=== PATIENT | male | born 1995 | race American Indian/Alaskan Native ===

== ENCOUNTER 2022-05-04 13:33 | Emergency (ER) | payer SELFPAY ==
[2022-05-04 14:12] VITALS: BP 139/93
== END 2022-05-04 16:00 | disposition left against medical advice (07) ==
LOC: ED 13:33
DX: R22.0 Localized swelling, mass and lump, head (principal); Z53.21 Procedure and treatment not carried out due to patient leaving prior to being seen by health care provider

== ENCOUNTER 2022-05-09 07:16 | Emergency (ER) | payer SELFPAY ==
[2022-05-09] MEDS ORDERED: dexAMETHasone 4 MG/ML VIAL PO ONE (08:11)
[2022-05-09] MEDS ORDERED: AMOXICILLIN/K CLAV 875/125MG TAB PO ONE (08:12)
[2022-05-09] MEDS ORDERED: oxyCODONE /ACETAMINOPHEN 5-325MG TAB PO ONE (08:12)
[2022-05-09] MEDS ORDERED: KETOROLAC 30 MG/1 ML INJ IM ONE (08:12)
--- NOTE | 2022-05-09 08:27 | Emergency Department Report ---
ED ENT HPI - General Chief complaint: Dental/Oral Stated complaint: FACE SWOLLEN Time Seen by Provider: 05/09/22 07:41 Source: patient Mode of arrival: Ambulatory Limitations: No Limitations - History of Present Illness Initial comments: 26-year-old black male with no past medical history presents to the emergency department for evaluation of a 4-day history of worsening tooth ache now with pain and swelling to the right side of face. He states that he woke up this morning with increased pain and swelling to the right side of face and states that he has had intermittent fever for the last couple of days. He states that pain is 10 out of 10 unrelieved by Tylenol and ibuprofen at home. MD complaint: tooth pain -: Gradual, days(s) (4) Location: tooth # Severity: severe Severity scale (0 -10): 10 Quality: aching Consistency: constant Worsens with: movement Context- Dental: poor dental care - Related Data Previous Rx's Medication Instructions Recorded Last Taken Type Acetaminophen/Codeine [Tylenol 1 tab PO Q6H PRN #12 tab 05/09/22 Unknown Rx /Codeine # 3 tab] Amoxicillin/K Clav Tab [Augmentin 1 tab PO Q12HR 10 Days #20 tab 05/09/22 Unknown Rx 875 mg] Ketorolac [Toradol] 10 mg PO Q6H PRN #12 tab 05/09/22 Unknown Rx Allergies Allergy/AdvReac Type Severity Reaction Status Date / Time No Known Allergies Allergy Unverified 05/04/22 14:12 ED Dental HPI - General Chief complaint: Dental/Oral Stated complaint: FACE SWOLLEN Time Seen by Provider: 05/09/22 07:41 Source: patient Mode of arrival: Ambulatory Limitations: No Limitations - Related Data Previous Rx's Medication Instructions Recorded Last Taken Type Acetaminophen/Codeine [Tylenol 1 tab PO Q6H PRN #12 tab 05/09/22 Unknown Rx /Codeine # 3 tab] Amoxicillin/K Clav Tab [Augmentin 1 tab PO Q12HR 10 Days #20 tab 05/09/22 Unknown Rx 875 mg] Ketorolac [Toradol] 10 mg PO Q6H PRN #12 tab 05/09/22 Unknown Rx Allergies Allergy/AdvReac Type Severity Reaction Status Date / Time No Known Allergies Allergy Unverified 05/04/22 14:12 ED Review of Systems ROS: Stated complaint: FACE SWOLLEN Other details as noted in HPI Comment: All other systems reviewed and negative Constitutional: fever. denies: chills, weakness Eyes: denies: eye pain ENT: dental pain. denies: congestion Respiratory: denies: shortness of breath Cardiovascular: denies: chest pain, palpitations Gastrointestinal: denies: abdominal pain, nausea, vomiting Neurological: headache. denies: weakness ED Past Medical Hx - Past Medical History Additional medical history: right eye blindness - Social History Smoking Status: Never Smoker - Medications Home Medications: Home Medications Medication Instructions Recorded Confirmed Last Taken Type Acetaminophen/Codeine [Tylenol 1 tab PO Q6H PRN #12 tab 05/09/22 Unknown Rx /Codeine # 3 tab] Amoxicillin/K Clav Tab [Augmentin 1 tab PO Q12HR 10 Days #20 tab 05/09/22 Unknown Rx 875 mg] Ketorolac [Toradol] 10 mg PO Q6H PRN #12 tab 05/09/22 Unknown Rx ED Physical Exam - General Limitations: No Limitations General appearance: alert, in no apparent distress - Head Head exam: Present: atraumatic, normocephalic - Expanded Head Exam Expanded Head exam: Present: other (Tenderness and swelling noted to right side of face near cheek) - Eye Eye exam: Present: normal appearance. Absent: conjunctival injection, pe riorbital swelling, periorbital tenderness - Expanded ENT Exam Expanded Teeth exam: Present: dental caries, dental tenderness # (31), other (Tenderness, swelling, erythema, and abscess noted around gums to tooth #31.) - Neck Neck exam: Present: normal inspection. Absent: lymphadenopathy - Respiratory Respiratory exam: Absent: respiratory distress - Cardiovascular Cardiovascular Exam: Present: regular rate - GI/Abdominal GI/Abdominal exam: Absent: distended - Extremities Exam Extremities exam: Present: normal inspection - Back Exam Back exam: Present: normal inspection - Neurological Exam Neurological exam: Present: alert, oriented X3, normal gait - Psychiatric Psychiatric exam: Present: normal affect, normal mood - Skin Skin exam: Present: warm, dry, intact, normal color ED Course Vital Signs 05/09/22 07:18 Temperature 98.5 F Pulse Rate 65 Respiratory 14 Rate Blood Pressure 146/94 O2 Sat by Pulse 100 Oximetry ED Medical Decision Making - Medical Decision Making 26-year-old black male with no past medical history presents to the emergency department for evaluation of a 4-day history of worsening tooth ache now with pain and swelling to the right side of face. He states that he woke up this morning with increased pain and swelling to the right side of face and states that he has had intermittent fever for the last couple of days. He states that pain is 10 out of 10 unrelieved by Tylenol and ibuprofen at home. Assessment and complaints consistent with dental abscess. Patient treated with Augmentin, IM Toradol, one-time dose of Decadron, and Percocet 2 tablets p.o. while in the emergency department and will be discharged home with 10-day course of Augmentin, Toradol, and Tylenol 3 to use as directed. He is advised to follow-up with dentist as soon as possible for further evaluation and management. He verbalizes understanding of and agreement with plan of care. Critical care attestation.: If time is entered above; I have spent that time in minutes in the direct care of this critically ill patient, excluding procedure time. ED Disposition Clinical Impression: Dental abscess Disposition: 01 HOME / SELF CARE / HOMELESS Is pt being admited?: No Does the pt Need Aspirin: No Condition: Stable Instructions: Dental Abscess, [id number] Additional Instructions: Take medications as prescribed. Follow-up with dentist for further evaluation and management. Return to the emergency department as needed. Prescriptions: Amoxicillin/K Clav Tab [Augmentin 875 mg] 1 tab PO Q12HR 10 Days #20 tab Ketorolac [Toradol] 10 mg PO Q6H PRN #12 tab PRN Reason: Pain Acetaminophen/Codeine [Tylenol /Codeine # 3 tab] 1 tab PO Q6H PRN #12 tab PRN Reason: Pain , Severe (7-10) Referrals: [facility] [Outside] - 3-5 Days [facility] [Outside] - 3-5 Days Forms: Work/School Release Form(ED) Time of Disposition: 08:31
[2022-05-09 08:49] VITALS: BP 140/90
== END 2022-05-09 08:50 | disposition home or self-care (01) ==
LOC: ED 07:16
DX: K04.7 Periapical abscess without sinus (principal); H54.7 Unspecified visual loss
CPT/HCPCS: 96372; 99282; J1100; J1885